=== PATIENT | female | born 1970 | race Caucasian/White ===

== ENCOUNTER 2018-06-06 12:15 | Emergency (ER) | payer MEDICAID ==
[2018-06-06 12:15] VITALS: BMI 26.4
[2018-06-06 12:31] VITALS: BP 123/63; PULSE 72; RESP 18; TEMP 98.8; O2SAT 98
--- NOTE | 2018-06-06 13:10 | C.PDOC ---
History Of Present Illness 47 year old female presents to the ED for evaluation of pruritic skin after showering with hot water for 20 years. Patient notes multiple visits to multiple doctors who she notes gives her the same cream, cream is unknown. She denies pruritic skin after swimming in open water and after washing her hands Denies fever, nausea, vomiting, and any other associated symptoms. Time Seen by Provider: 06/06/18 12:22 Chief Complaint (Nursing): Abnormal Skin Integrity History Per: Patient History/Exam Limitations: no limitations Onset/Duration Of Symptoms: Days (20 years.) Current Symptoms Are (Timing): Still Present Past Medical History Reviewed: Historical Data, Nursing Documentation, Vital Signs Vital Signs: Last Vital Signs Temp 98.8 F 06/06/18 12:28 Pulse 72 06/06/18 12:28 Resp 18 06/06/18 12:28 BP 123/63 06/06/18 12:28 Pulse Ox 98 06/06/18 12:28 - Medical History PMH: Hypercholesterolemia (Not on meds) Denies: Chronic Kidney Disease Family History: States: Unknown Family Hx - Social History Hx Alcohol Use: No Hx Substance Use: No Review Of Systems Constitutional: Negative for: Fever Gastrointestinal: Negative for: Nausea, Vomiting Skin: Positive for: Other (pruritic skin.) Physical Exam - Physical Exam Appears: Well, Non-toxic Skin: Normal Color, Warm, Dry, No Other (no itching during PE. ) Head: Atraumatic, Normacephalic Eye(s): bilateral: Normal Inspection Oral Mucosa: Moist Throat: Normal, No Erythema, No Exudate Neck: Normal ROM, Supple Chest: Symmetrical, No Deformity Cardiovascular: Rhythm Regular, No Murmur Respiratory: Normal Breath Sounds, No Rales, No Rhonchi, No Wheezing Neurological/Psych: Oriented x3, Normal Speech ED Course And Treatment O2 Sat by Pulse Oximetry: 98 (RA) Pulse Ox Interpretation: Normal Progress Note: Progress/Update: Patient stable for discharge home. Prescribed Claritin. Advised to follow up with a new freight caller. Disposition - Disposition Disposition: HOME/ ROUTINE Disposition Time: 13:07 Condition: STABLE Additional Instructions: Follow up with [employer] [facility] within 2-3 days. Return to ED if feel worse. Prescriptions: Loratadine [Claritin] 10 mg PO DAILY #30 tab Instructions: Itchy Skin Forms: [facility] (Nepali) Print Language: IRISH - Clinical Impression Clinical Impression: Chronic pruritus - PA / DIRECTOR PAYMENT / Resident Statement MD/DO has reviewed & agrees with the documentation as recorded. - Scribe Statement The provider has reviewed the documentation as recorded by the Scribe (Jessenia Rincon) All medical record entries made by the Scribe were at my direction and personally dictated by me. I have reviewed the chart and agree that the record accurately reflects my personal performance of the history, physical exam, medical decision making, and the department course for this patient. I have also personally directed, reviewed, and agree with the discharge instructions and disposition.
== END 2018-06-06 14:19 | disposition home or self-care (01) ==
LOC: C.ER 12:15
DX: L29.9 Pruritus, unspecified (principal); E78.00 Pure hypercholesterolemia, unspecified